=== PATIENT | female | born 1960 | race Caucasian/White ===

== ENCOUNTER 2025-03-29 09:52 | Outpatient (AMB) | payer MEDICARE, SELFPAY ==
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
== END 2025-03-29 10:57 | disposition home or self-care (01) ==
LOC: HO.HPHYS 09:52
PROVIDERS: PCP Internal Medicine; Visit Provider Physician Assistant
DX: M54.12 Radiculopathy, cervical region (principal); M47.812 Spondylosis without myelopathy or radiculopathy, cervical region; M75.42 Impingement syndrome of left shoulder
CPT/HCPCS: 20610; 99214

== ENCOUNTER → 2025-03-29 09:52 | Outpatient (BNVA) | payer MEDICARE, SELFPAY | PROVIDERS: PCP Internal Medicine; Visit Provider Physician Assistant | DX: M75.42 Impingement syndrome of left shoulder (principal); M47.812 Spondylosis without myelopathy or radiculopathy, cervical region; M54.12 Radiculopathy, cervical region; M25.512 Pain in left shoulder; M54.2 Cervicalgia | CPT/HCPCS: 20610; 99212; J2003; J3301 ==